=== PATIENT | female | born 1995 | race Caucasian/White ===

== ENCOUNTER 2017-01-31 19:57 | Emergency (ER) | payer BC ==
[2017-01-31 20:14] VITALS: BP 127/68
--- NOTE | 2017-01-31 20:53 | UC ---
Back Pain HPI - HPI Summary HPI Summary: pt reports that she slipped and fell down several metal stairs last evening while drinking ETOH. Pt denies LOC and can recall event. Pt woke this morning nad has left side lateral mid side back pain. - History of Current Complaint Chief Complaint: UCBackPain Stated Complaint: BACK INJURY FROM FALL Time Seen by Provider: 01/31/17 20:22 Hx Last Menstrual Period: 01/03/17 ?: No Onset/Duration: Gradual Onset, Lasting Hours, Still Present, Worse Since - onset Timing: Constant Severity Initially: Mild Severity Currently: Moderate Back Pain: Is Discrete @ - left lateral back Aggravating: Movement Alleviating: Position Associated Signs And Symptoms: Positive: Negative - Risk Factors AAA Risk Factors: Negative TAD Risk Factors: Negative Cauda Equina Risk Factors: Negative Epidural Abscess Risk Factors: Negative - Allergies/Home Medications Allergies/Adverse Reactions: Allergies Allergy/AdvReac Type Severity Reaction Status Date / Time No Known Allergies Allergy Verified 01/31/17 20:07 Home Medications: Home Medications Desogestrel & Ethinyl Estradio [Juleber 0.15-30 mg-Mcg] 1 tab PO DAILY 01/31/17 [History Confirmed 01/31/17] PMH/Surg Hx/FS Hx/Imm Hx Previously Healthy: Yes - Surgical History Surgical History: None - Family History Known Family History: Positive: Cardiac Disease - Social History Occupation: Student - [employer] Lives: Dormitory/Roommates Alcohol Use: Occasionally Substance Use Type: None Smoking Status (MU): Never Smoked Tobacco Have You Smoked in the Last Year: No - Immunization History Hx Tetanus, Diphtheria Vaccination: Yes Vaccination Up to Date: Yes Review of Systems Constitutional: Negative Skin: Negative Eyes: Negative ENT: Negative Respiratory: Other - c/o dyspnea with deep breaths Cardiovascular: Negative Gastrointestinal: Negative Genitourinary: Negative Motor: Decreased ROM - left side back/ribs Neurovascular: Negative Musculoskeletal: Arthralgia, Myalgia - left lateral back/ribs Neurological: Negative Psychological: Negative Is Patient Immunocompromised?: No All Other Systems Reviewed And Are Negative: Yes Physical Exam Triage Information Reviewed: Yes Appearance: Pain Distress - mild Vital Signs: Initial Vital Signs Temp 98.6 F 01/31/17 20:08 Pulse 75 01/31/17 20:08 Resp 16 01/31/17 20:08 BP 127/68 01/31/17 20:08 Pulse Ox 100 01/31/17 20:08 Vital Signs Reviewed: Yes Eye Exam: Normal ENT Exam: Normal Neck exam: Normal Respiratory Exam: Normal Respiratory: Positive: Other: - c/o pain with deep inspiration Cardiovascular Exam: Normal Musculoskeletal Exam: Other Musculoskeletal: Positive: ROM Limited @ - left lateral back Neurological Exam: Normal Psychological Exam: Normal Skin Exam: Normal Back Pain Course/Dx - Course Course Of Treatment: Xray: Report: No LEFT rib fracture, pulmonary contusion, pleural effusion, or pneumothorax. The. heart, pulmonary vasculature, and mediastinal contours are unremarkable. IMPRESSION: Negative LEFT rib series. No traumatic injury evident - Differential Dx/Diagnosis Differential Diagnosis/HQI/PQRI: Fracture, Other - contusion Provider Diagnoses: rib contusion Discharge - Discharge Plan Condition: Stable Disposition: HOME Patient Education Materials: Rib Contusion (ED) Forms: *School Release Referrals: [facility] [place] [facility] [Outside] Additional Instructions: Please follow with your PCP or return to clinic as needed. Xray results: Report: No LEFT rib fracture, pulmonary contusion, pleural effusion, or pneumothorax. The heart, pulmonary vasculature, and mediastinal contours are unremarkable.
--- NOTE | 2017-01-31 20:54 | RAD ---
Indication: Posterior LEFT rib pain post fall. Comparison: No relevant prior exams available on the [facility] for comparison. Technique: Dual energy PA chest and 4 view dedicated LEFT rib series. Report: No LEFT rib fracture, pulmonary contusion, pleural effusion, or pneumothorax. The heart, pulmonary vasculature, and mediastinal contours are unremarkable. IMPRESSION: Negative LEFT rib series. No traumatic injury evident.
== END 2017-01-31 21:06 | disposition home or self-care (01) ==
LOC: UCCORT 19:57
DX: S20.222A Contusion of left back wall of thorax, initial encounter (principal); W10.9XXA Fall (on) (from) unspecified stairs and steps, initial encounter; Y93.9 Activity, unspecified; Y92.9 Unspecified place or not applicable
CPT/HCPCS: 99201; G0463